=== PATIENT | female | born 1995 | race Caucasian/White ===

== ENCOUNTER 2018-09-03 09:43 | Emergency (ER) | payer OTHER ==
[~2018-09-03] VITALS: Ht 165.1 cm; Wt 70.8 kg
[2018-09-03] MEDS ORDERED: Polytrim Eye Dr10 ML BOTHEYES (10:35)
== END 2018-09-03 10:40 | disposition home or self-care (01) ==
LOC: ER 09:43
DX: H10.9 Unspecified conjunctivitis (principal); Z88.0 Allergy status to penicillin; F17.200 Nicotine dependence, unspecified, uncomplicated
CPT/HCPCS: 99282